=== PATIENT | male | born 1965 | race Asian ===

== ENCOUNTER 2018-11-22 16:01 | Observation (INO) | payer OTHER ==
[~2018-11-22] VITALS: Ht 180.3 cm; Wt 74.0 kg
[2018-11-22 16:19] VITALS: BP 172/99; TEMP 98.2
[2018-11-22 16:56] LABS: PLATELET COUNT 263 K/uL (142-355)
[2018-11-22 17:14] LABS: POTASSIUM 3.5 mmol/L (3.6-5.2); SODIUM 141 mmol/L (136-145)
[2018-11-23] VITALS: BP 168/93; TEMP 97.9
[2018-11-23 00:30] VITALS: BP 151/100; TEMP 97.8; Ht 180.3 cm; Wt 74.0 kg
[2018-11-23 04:00] VITALS: BP 134/86; TEMP 98.2
[2018-11-23 04:13] LABS: PARTIAL THROMBOPLASTIN TIME 28.3 SECONDS (24.5-33.6)
[2018-11-23 08:00] VITALS: BP 153/94; TEMP 97.8
== END 2018-11-23 12:40 | disposition home or self-care (01) ==
LOC: ED 16:01 → MED/SURG 18:35
PROVIDERS: ADMIT Family Medicine
DX: R07.89 Other chest pain (principal); I10 Essential (primary) hypertension; I69.854 Hemiplegia and hemiparesis following other cerebrovascular disease affecting left non-dominant side
CPT/HCPCS: 36415; 80053; 82550; 84484; 85027; 85610; 85730; 93005; 99220; 99283; G0378

== ENCOUNTER 2019-06-10 11:25 | Outpatient (CLI) | payer OTHER ==
[2019-06-10] MEDS ORDERED: AMLODIPINE BESYLATE PO (11:45)
[2019-06-10] MEDS ORDERED: CHLORTHALID50 MG PO (11:46)
== END 2019-06-10 11:31 | disposition short-term general hospital (02) ==
LOC: AMB 11:25
DX: R41.82 Altered mental status, unspecified (principal)
CPT/HCPCS: A0425; A0427

== ENCOUNTER 2019-06-10 11:32 | Emergency (ER) | payer OTHER ==
[~2019-06-10] VITALS: Ht 180.3 cm; Wt 79.4 kg
[2019-06-10] MEDS ORDERED: AMLODIPINE BESYLATE PO (11:45)
[2019-06-10] MEDS ORDERED: CHLORTHALID50 MG PO (11:46)
[2019-06-10 12:27] LABS: PLATELET COUNT 278 K/uL (142-355)
[2019-06-10 12:39] LABS: POTASSIUM 3.8 mmol/L (3.6-5.2); SODIUM 138 mmol/L (136-145)
[2019-06-10 14:30] VITALS: BP 154/90; TEMP 98.1
== END 2019-06-10 14:30 | disposition home or self-care (01) ==
LOC: ED 11:32
PROVIDERS: Emergency Medicine
DX: E86.0 Dehydration (principal); D64.89 Other specified anemias
CPT/HCPCS: 80053; 80307; 81000; 83735; 84484; 85027; 93005; 96360; 99284

== ENCOUNTER 2019-08-05 11:07 | Emergency (ER) | payer OTHER ==
[~2019-08-05] VITALS: Ht 180.3 cm; Wt 79.4 kg
[~2019-08-05 11:07] MED LIST: AMLODIPINE BESYLATE PO; CHLORTHALID50 MG PO
[2019-08-05] MEDS ORDERED: HYDRALAZINE25 MG PO (11:31)
[2019-08-05 13:50] VITALS: BP 162/76; TEMP 97.8
== END 2019-08-05 13:50 | disposition home or self-care (01) ==
LOC: ED 11:07
DX: R60.0 Localized edema (principal); I10 Essential (primary) hypertension
CPT/HCPCS: 99283

== ENCOUNTER 2019-11-15 14:00 | Inpatient (IN) | payer OTHER ==
[~2019-11-15 14:00] MED LIST changes: +HYDRALAZINE25 MG PO
== END 2019-11-24 11:51 | disposition still patient (30) ==
LOC: PAVC 14:00
PROVIDERS: ADMIT Internal Medicine

== ENCOUNTER 2019-11-16 05:15 | Outpatient (CLI) | payer OTHER ==
[2019-11-16 06:15] LABS: PLATELET COUNT 272 K/uL (142-355)
[2019-11-16 07:07] LABS: POTASSIUM 3.3 mmol/L (3.6-5.2)
== END 2019-11-16 20:36 | disposition home or self-care (01) ==
LOC: LAB 05:15
PROVIDERS: Internal Medicine
DX: I69.351 Hemiplegia and hemiparesis following cerebral infarction affecting right dominant side (principal); I10 Essential (primary) hypertension
CPT/HCPCS: 80053; 82306; 82728; 83540; 84153; 85027

== ENCOUNTER 2019-11-17 06:19 | Outpatient (CLI) | payer OTHER | END 2019-11-17 19:22 | disposition home or self-care (01) | LOC: LAB 06:19 | DX: Z16.19 Resistance to other specified beta lactam antibiotics (principal) | CPT/HCPCS: 87081 ==

== ENCOUNTER 2019-11-17 14:47 | Outpatient (CLI) | payer OTHER | END 2019-11-17 19:31 | disposition home or self-care (01) | LOC: RAD 14:47 | DX: Z11.1 Encounter for screening for respiratory tuberculosis (principal) ==

== ENCOUNTER 2019-11-24 12:24 | Inpatient (IN) | payer OTHER | END 2019-12-24 11:24 | disposition still patient (30) | LOC: PAVC 12:24 | PROVIDERS: ADMIT Internal Medicine ==

== ENCOUNTER 2019-12-21 06:07 | Outpatient (CLI) | payer OTHER | END 2019-12-21 19:23 | disposition home or self-care (01) | LOC: LAB 06:07 | DX: E55.9 Vitamin D deficiency, unspecified (principal) | CPT/HCPCS: 82306 ==

== ENCOUNTER 2020-03-06 10:55 | Outpatient (CLI) | payer OTHER ==
[2020-03-06 11:52] LABS: PLATELET COUNT 276 K/uL (142-355)
[2020-03-06 12:19] LABS: POTASSIUM 3.6 mmol/L (3.6-5.2)
== END 2020-03-06 19:20 | disposition home or self-care (01) ==
LOC: LAB 10:55
PROVIDERS: Nurse Practitioner Family
DX: Z00.00 Encounter for general adult medical examination without abnormal findings (principal); I10 Essential (primary) hypertension; R41.3 Other amnesia; Z79.899 Other long term (current) drug therapy; R53.83 Other fatigue; R53.81 Other malaise; Z12.5 Encounter for screening for malignant neoplasm of prostate; E55.9 Vitamin D deficiency, unspecified; N40.0 Benign prostatic hyperplasia without lower urinary tract symptoms
CPT/HCPCS: 80053; 80061; 82306; 83036; 84153; 84439; 84443; 84481; 85027

== ENCOUNTER 2020-04-05 14:10 | Outpatient (CLI) | payer OTHER | END 2020-04-05 20:34 | disposition home or self-care (01) | LOC: LAB 14:10 | DX: D64.9 Anemia, unspecified (principal); R53.81 Other malaise; R53.83 Other fatigue; E53.8 Deficiency of other specified B group vitamins | CPT/HCPCS: 82607; 82728; 82746; 83540 ==

== ENCOUNTER 2021-02-23 10:30 | Outpatient (CLI) | payer OTHER ==
[2021-02-23 11:21] LABS: PLATELET COUNT 248 K/uL (142-355)
[2021-02-23 11:42] LABS: POTASSIUM 3.4 mmol/L (3.6-5.2)
== END 2021-02-23 23:00 | disposition home or self-care (01) ==
LOC: LABW 10:30
PROVIDERS: ATTEND Specialist
DX: F03.90 Unspecified dementia, unspecified severity, without behavioral disturbance, psychotic disturbance, mood disturbance, and anxiety (principal); I63.9 Cerebral infarction, unspecified; I10 Essential (primary) hypertension
CPT/HCPCS: 36415; 80053; 80061; 85027; 85652; 86225

== ENCOUNTER 2021-03-08 10:54 | Outpatient (CLI) | payer OTHER | END 2021-03-08 19:10 | disposition home or self-care (01) | LOC: MRI 10:54 | PROVIDERS: ATTEND Specialist | DX: I63.9 Cerebral infarction, unspecified (principal); F03.90 Unspecified dementia, unspecified severity, without behavioral disturbance, psychotic disturbance, mood disturbance, and anxiety ==

== ENCOUNTER 2021-03-09 09:57 | Outpatient (CLI) | payer OTHER | END 2021-03-09 22:51 | disposition home or self-care (01) | LOC: RESP 09:57 | PROVIDERS: ATTEND Specialist | DX: I63.9 Cerebral infarction, unspecified (principal); F03.90 Unspecified dementia, unspecified severity, without behavioral disturbance, psychotic disturbance, mood disturbance, and anxiety ==

== ENCOUNTER 2021-05-23 10:40 | Outpatient (CLI) | payer OTHER | END 2021-05-23 19:03 | disposition home or self-care (01) | LOC: MRI 10:40 | PROVIDERS: ATTEND Specialist | DX: I63.9 Cerebral infarction, unspecified (principal); I65.21 Occlusion and stenosis of right carotid artery ==

== ENCOUNTER 2021-07-04 12:35 | Outpatient (CLI) | payer OTHER | END 2021-07-04 20:43 | disposition home or self-care (01) | LOC: CT 12:35 | PROVIDERS: ATTEND Specialist | DX: I63.9 Cerebral infarction, unspecified (principal); I65.21 Occlusion and stenosis of right carotid artery | CPT/HCPCS: 36415; 82565; 84520; Q9963 ==

== ENCOUNTER 2021-08-01 12:31 | Emergency (ER) | payer OTHER ==
[~2021-08-01] VITALS: Ht 180.3 cm; Wt 73.5 kg
[2021-08-01 12:41] VITALS: TEMP 97.2
[2021-08-01 13:15] LABS: PLATELET COUNT 302 K/uL (142-355)
[2021-08-01 14:03] LABS: POTASSIUM 3.2 mmol/L (3.6-5.2)
[2021-08-01 17:10] VITALS: BP 128/80
== END 2021-08-01 17:10 | disposition home or self-care (01) ==
LOC: ED 12:31
PROVIDERS: Emergency Medicine
DX: K52.89 Other specified noninfective gastroenteritis and colitis (principal); R06.02 Shortness of breath
CPT/HCPCS: 36415; 80053; 83880; 84484; 85027; 93005; 96360; 96375; 99284; J2405

== ENCOUNTER 2021-09-17 09:44 | Outpatient (CLI) | payer OTHER | END 2021-09-17 20:54 | disposition home or self-care (01) | LOC: CT 09:44 | PROVIDERS: ATTEND Specialist | DX: I63.9 Cerebral infarction, unspecified (principal); I77.3 Arterial fibromuscular dysplasia; I72.8 Aneurysm of other specified arteries | CPT/HCPCS: 36415; 82565; 84520; Q9963 ==